=== PATIENT | male | born 2000 | race Caucasian/White ===

== ENCOUNTER 2023-07-18 14:05 | Observation (INO) ==
[2023-07-18] MEDS ORDERED: oxyCODONE HCL IR 5 MG TAB (IMMEDIATE RELEASE) PO STA (14:32)
--- NOTE | 2023-07-18 14:36 | Emergency Department Note ---
ED Provider Note History of Present Illness Chief Complaint: Leg Injury/Pain Time Seen by Provider: 07/18/23 14:12 Source: patient Mode of arrival: EMS Limitations: no limitations This patient is a 23-year-old male who presents to the emergency department for evaluation of a left leg injury. Patient states that he was walking down steps and tripped, causing all of his weight to land on his left leg. He reports that he had an immediate onset of severe pain and heard a crack. He has a history of a tibial plateau fracture and does report that he has hardware. 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 His email production specialist is in [place]. He states that he contacted them and already treated himself with 3000 units of factor. Home Medications Medication Instructions Recorded Confirmed Type emicizumab-kxwh 105 mg/0.7 mL 105 mg subcut .Q 2 WEEKS 07/18/23 07/18/23 History subcutaneous solution (Hemlibra) fluoxetine 20 mg capsule 20 mg PO DAILY 07/18/23 07/18/23 History Allergies Allergy/AdvReac Type Severity Reaction Status Date / Time blood thinner AdvReac Severe Patient is Uncoded 07/18/23 16:35 Hemophiliac Past Med/Surg History Medical History (Updated 07/18/23 @ 22:07 by Julianne Culp PA-C) Hemophilia A Surgical History No pertinent past surgical history Social History Smoking Status: Never smoker Preferred Language: Citizen Of [place] Feels Safe at Home: Yes and No Physical Exam Vital Signs Vital Signs - 24 hr 07/18/23 14:13 07/18/23 18:30 Temperature 36.6 C Temperature Source Oral Pulse Rate 90 Pulse Rate [Apical] 84 Respiratory Rate 18 20 Respiratory Effort / Characteristics Non-Labored Spontaneous Non-Labored Spontaneous Respiratory Depth Normal Normal Respiratory Pattern Regular Blood Pressure 121/76 Blood Pressure [Left Arm] 120/61 Blood Pressure Mean 91 Blood Pressure Mean [Left Arm] 80 Pulse Oximetry 100 97 Oxygen Delivery Method Room Air Sepsis Recent Fever Within 48 Hours No Sepsis New/Unexplained Change in Mental Status No Sepsis Action Taken by Nursing No Action Required VITALS: Vitals are noted on the nurse's note and reviewed by myself. GENERAL: This is a 23-year-old male, in no acute distress, well-developed well- nourished. SKIN: There are no open wounds. MUSCULOSKELETAL: There is tenderness to palpation over the left proximal tibia/fibula. No tenderness of the left upper leg, ankle or foot. Full range of motion of the toes. Dorsalis pedis pulse 2+. NEURO: Patient was alert and oriented to person place and time. Distal sensation intact. Course Administered Medications Discontinued Medications Oxycodone HCl (Oxycodone Hcl Ir 5 Mg Tab (Immediate Release)) 5 mg PO NOW STA Stop: 07/18/23 14:33 Last Admin: 07/18/23 14:42 Dose: 5 mg Documented By: EITAN Medical Decision Making Differential Diagnosis Differential diagnosis includes ligamentous injury, fracture, hemarthrosis, among others. Home Medications was personally reviewed by me Laboratory Data Attestation: I reviewed the patient's lab results. 07/18/23 17:48 07/18/23 17:48 Lab Results 07/18/23 Range/Units 17:48 WBC 10.35 (4.8-10.8) K/ul RBC 4.89 (4.70-6.10) M/uL Hgb 12.5 L (14.0-18.0) g/dl Hct 38.3 L (42.0-52.0) % MCV 78.3 L (80.0-100.0) fL MCH 25.6 (25.0-34.0) pg MCHC 32.6 (32.0-36.0) g/dL RDW Std Deviation 42.7 (36.4-46.3) fL RDW Coeff of [place] 15.1 H (11.5-14.5) % Plt Count 246 (130-400) K/uL MPV 10.5 (9.4-12.4) fL Immature Gran % (Auto) 0.3 % Neut % (Auto) 84.3 % Lymph % (Auto) 7.0 % [place] % (Auto) 8.2 % Eos % (Auto) 0.0 % Baso % (Auto) 0.2 % Neut # (Auto) 8.73 H (1.40-6.50) K/uL Lymph # (Auto) 0.72 L (1.20-3.40) K/uL [place] # (Auto) 0.85 H (0.11-0.59) K/uL Eos # (Auto) 0.00 (0.00-0.50) K/uL Baso # (Auto) 0.02 (0.00-0.20) K/uL Immature Gran # (Auto) 0.03 (0.01-0.20) K/uL Sodium 138 (136-145) mmol/L Potassium 3.6 (3.5-5.1) mmol/L Chloride 104 (98-107) mmol/L Carbon Dioxide 25 (21-32) mmol/L Anion Gap 9 (3-11) BUN 12 (6-23) mg/dl Creatinine 0.79 (0.6-1.4) mg/dl Est Cr Clr Drug Dosing Not Reportable Est GFR ( Amer) 148.8 ml/min Est GFR (Non-Af Amer) 128.4 ml/min BUN/Creatinine Ratio 15.2 (10-20) Glucose 110 H (70-99(Fasting)) mg/dl Calcium 9.2 (8.6-10.3) mg/dl Imaging Data Attestation: I personally reviewed and interpreted this imaging study as follows: Radiologist's Impression: Tibia/Fibula X-Ray 07/18/23 14:32 LEFT TIBIA AND FIBULA 2 VIEWS CLINICAL HISTORY: Left leg injury. FINDINGS: AP and lateral portable views of the left tibia and fibula are compared to study dated 04/12/2023. There is disuse osteopenia. No acute fracture is identified. There is post traumatic deformity of the proximal tibia and fibula with buttress plates in place along the proximal tibial cortex. There are also surgical clips adjacent to the chronic proximal fibular fracture. Additional screw tracts are seen in the distal tibial shaft. The knee and ankle joints are grossly maintained. The overlying soft tissues are within normal limits. IMPRESSION: 1. No acute fracture is identified. 2. Posttraumatic deformity and postsurgical change of the proximal tibia and fibula as above. Electronically signed by: Andrea Funez M.D. 07/18/2023 3:01 PM Knee X-Ray 07/18/23 14:39 LEFT KNEE 3 VIEWS CLINICAL HISTORY: Left leg injury. FINDINGS: AP, crosstable lateral, and sunrise views of the left knee are compared to study dated 05/31/2023. There is disuse osteopenia. No acute fracture is identified. There is posttraumatic deformity of the proximal tibia and fibula with buttress plates in place along the proximal tibial cortex. There are also surgical clips adjacent to the chronic/healed proximal fibular shaft fracture. There is persistent depression of the lateral tibial plateau by approximately 5 mm. The joint spaces are grossly maintained. A joint effusion is observed. The overlying soft tissues are within normal limits. IMPRESSION: 1. Joint effusion with no acute fracture identified. 2. Posttraumatic deformity and postsurgical change of the proximal tibia and fibula as above. Electronically signed by: Andrea Funez M.D. 07/18/2023 4:05 PM MDM Narrative This patient is a 23-year-old male with past medical history of hemophilia A who presents to the emergency department for evaluation of a left leg injury. Patient has a history of left leg tibial plateau fracture and compartment syndrome in February of this year. He required fasciotomies and had ORIF performed, all in [place]. His x-rays here showed no fractures, although an effusion of the left knee is noted. Unclear whether this represents a hemarthrosis. Patient's mother had contacted his hemophilia specialist prior to his arrival and they recommended 3000 units of factor VIII which the patient gave himself prior to arrival here. I did reach out to the patient's email production specialist. They recommended checking labs. His hemoglobin is usually between 9 and 10 and today is 12.5. They recommend that the patient receive his Hemlibra tonight as scheduled. They state there is no need to check factor levels because this will be affected by the Hemlibra. They did recommend reaching out to orthopedics. I spoke with orthopedics, Dr. Vicente who recommended placing the patient in a bulky Coker dressing and knee immobilizer. He can follow-up with his established orthopedic surgeon back in [place]. There is no need for further treatment from an orthopedic perspective at this time. I again spoke with the patient's email production specialist with the laboratory updates. They did daily factor at a dosage of 50 units/kg for 3 days. They reported there is no need for arthrocentesis at this time. They do recommend observing the patient for at least 24 hours for him to receive his second dose of factor. [facility] was consulted and agreed to evaluate patient for further care. Impression Effusion of left knee, Hemophilia A Discharge Plan Visit Data Chief Complaint: Leg Injury/Pain ED Provider: [facility] Midlevel Provider: Julianne Culp Discharge Problem: Effusion of left knee, Hemophilia A Discharge Instructions Interventions: ED Discharge Assessment Last Done: 07/18/23 21:19
--- NOTE | 2023-07-18 15:03 | XRay Report ---
LEFT TIBIA AND FIBULA 2 VIEWS CLINICAL HISTORY: Left leg injury. FINDINGS: AP and lateral portable views of the left tibia and fibula are compared to study dated 04/12. There is disuse osteopenia. No acute fracture is identified. There is post traumatic deformity of the proximal tibia and fibula with buttress plates in place along the proximal tibial cortex. The re are also surgical clips adjacent to the chronic proximal fibular fracture. Additional screw tracts are seen in the distal tibial shaft. The knee and ankle joints are grossly maintained. The overlying soft tissues are within normal limits. IMPRESSION: 1. No acute fracture is identified. 2. Posttraumatic deformity and postsurgical change of the proximal tibia and fibula as above. Electronically signed by: Andrea Funez M.D. 07/18/2023 3:01 PM
--- NOTE | 2023-07-18 16:06 | XRay Report ---
LEFT KNEE 3 VIEWS CLINICAL HISTORY: Left leg injury. FINDINGS: AP, crosstable lateral, and sunrise views of the left knee are compared to study dated 05/13. There is disuse osteopenia. No acute fracture is identified. There is posttraumatic deformity of the proximal tibia and fibula with buttress plates in place along the proximal tibial cortex. The re are also surgical clips adjacent to the chronic/healed proximal fibular shaft fracture. There is p ersistent depression of the lateral tibial plateau by approximately 5 mm. The joint spaces are grossl y maintained. A joint effusion is observed. The overlying soft tissues are within normal limits. IMPRESSION: 1. Joint effusion with no acute fracture identified. 2. Posttraumatic deformity and postsurgical change of the proximal tibia and fibula as above. Electronically signed by: Andrea Funez M.D. 07/18/2023 4:05 PM
[2023-07-18 18:10] LABS: Basophils # (auto) 0.02 K/uL (0.00-0.20); Basophils % (auto) 0.2 %; Hematocrit (blood only) 38.3 % (42.0-52.0); Hemoglobin 12.5 g/dl (14.0-18.0); Immature Granulocytes # (auto) 0.03 K/uL (0.01-0.20); Immature Granulocytes % (auto) 0.3 %; Lymphocytes # (auto) 0.72 K/uL (1.20-3.40); Mean Corpuscular Hemoglobin 25.6 pg (25.0-34.0); Mean Corpuscular Hgb Conc 32.6 g/dL (32.0-36.0); Mean Corpuscular Volume 78.3 fL (80.0-100.0); Mean Platelet Volume 10.5 fL (9.4-12.4); Monocytes # (auto) 0.85 K/uL (0.11-0.59); Monocytes % (auto) 8.2 %; Neutrophils # (auto) 8.73 K/uL (1.40-6.50); Neutrophils % (auto) 84.3 %; Platelet Count 246 K/uL (130-400); RDW Coefficient of Variation 15.1 % (11.5-14.5); RDW Standard Deviation 42.7 fL (36.4-46.3); Red Blood Count 4.89 M/uL (4.70-6.10); White Blood Count 10.35 K/ul (4.8-10.8)
[2023-07-18 18:25] LABS: Anion Gap 9 (3-11); BUN Creatinine Ratio 15.2 (10-20); Blood Urea Nitrogen 12 mg/dl (6-23); Calcium 9.2 mg/dl (8.6-10.3); Carbon Dioxide 25 mmol/L (21-32); Chloride 104 mmol/L (98-107); Est GFR (African American) 148.8 ml/min; Est GFR (Non-African American) 128.4 ml/min; Glucose 110 mg/dl (70-99(Fasting)); Potassium 3.6 mmol/L (3.5-5.1); Sodium 138 mmol/L (136-145)
[2023-07-18] MEDS ORDERED: HEMLIBRA SQ ONE ×2 (19:18→22:15)
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
[2023-07-19] MEDS: ACETAMINOPHEN 325 MG TAB PO PRN ×2 (00:47→08:16)
--- OUTSIDE RECORDS SUMMARY | 2023-07-19 02:38 | External Medical Summary | Continuity of Care Document ---
Author Name Unknown Organization [facility] [address] [facility] [address] Address [facility] [place], [place] [id number] Encounter [facility] [id number] Date(s): 05/31/23 - 05/31/23 [facility] [address] [facility] [address] [facility] [address] [place] [address], [address] [address] Encounter Diagnosis S/P orthopedic surgery, follow-up exam(Discharge Diagnosis) - 05/31/23 PCL sprain(Discharge Diagnosis) - 05/31/23 Discharge Disposition: Home or Self Care Attending Physician: MD Jules, Godwin A Allergies, Adverse Reactions, Alerts Substance Reaction Severity Status Allergy Not found in Search 1 BLOOD THINNERS HAS HEMOP DE Active 1BLOOD THINNERS HAS HEMOPHELIA Medications Adynovate intravenous injection Start: 12/08/22 15:22:00 EDT, 300 units Start Date: 12/08/22 Status: Ordered aminocaproic acid 250 mg/mL intravenous solution Start: 11/30/22 7:50:00 EDT, Unknown Start Date: 11/30/22 Status: Ordered cetirizine 10 mg oral tablet Start: 11/30/22 7:51:00 EDT, 10 Unknown, Unknown Start Date: 11/30/22 Status: Ordered fluticasone 50 mcg/inh nasal spray Start: 11/30/22 7:51:00 EDT, 2 Unknown, Unknown Start Date: 11/30/22 Status: Ordered Hemlibra 105 mg/0.7 mL subcutaneous solution Start: 04/12/23 8:27:00 EDT Start Date: 04/12/23 Status: Ordered montelukast 10 mg oral tablet Start: 11/30/22 7:51:00 EDT, 10 Unknown, Unknown Start Date: 11/30/22 Status: Ordered Mental Status 05/31/23 Barriers to Learning one year None evide nt Mandatory Health Literacy Documentation Yes Health Literacy Communication Barriers N ever Primary Language [place] Problem List Condition Confirmation Course Effective Dates Status Health St atus Informant Hemophilia Confirmed Active Left wrist injury Confirmed Active PCL sprain Confirmed Active S/P orthopedic surgery, follow-up exam Confirmed Active Diagnosis Diagnosis Type Effective Dates Health Status Clinical Service Informant S/P orthopedic surgery, follow-up exam Discharge Diagnosis 05/31/23 PCL sprain Discharge Diagnosis 05/31/23 Procedures Procedure Date Related Diagnosis Body Site Status Orthopedics surgery service 1 2022 Completed Tonsillectomy Completed 1left leg Social History Social History Type Response Smoking Status Never smoked cigaret eunice Sex Male Ortho Outpt Note * MD Jules, Godwin A: MODIFY MD Julse, Godwin A: MODIFY, MODIFY, PERFORM Natalie Cody: PERFORM Event Display: Ortho Outpt Note Authored Date: [id number] Name:PARUL VILLARREAL Patient Number:[id number] :2000 Date of Service:05/31/2023 CHIEF COMPLAINT: F/u s/p fasciotomyand application of left knee spanning external fixator on03/07/2023 and removal of Ex-Fixand ORIF of the lefttibial plateau fracture on03/09/2023 HPI: [id number] I am following for the above- noted procedure. He has regained somefeeling in his foot and has improved ROM.Patient is currently ambulating in a wheelchair. He has not been in formal physical therapy. Today he rates his pain as a 0/10. ROS: Refer to the HPI. PHYSICAL EXAM: Focusing on the patient'sleftlower extremity: Brisk cap refill < 2 seconds 1+ DP pulse Sensation to light touch is intact over the lesser toes 1st web space [id number]% Medial to the great toe [id number]% Top of the foot estimates [id number]% Motor to the gastroc soleus, tibialis anterior, and EHL is 5/5. Able to perform straight leg raise. -Rosita's Ligamentous examination exhibits:_ [id number] anterior translation andfirm endpoint Posterior [id number] posterior translation with firm endpoint Varus stress at 0 and 30stableno opening Valgus stress at 0 and 30stableno opening - NoEffusion Range of motion 0 to 135 Incisions well healed Slight quad atrophy Symmetric dial testing at 90and 30 RADIOGRAPHY: AP and lateral of the left knee obtained today and personally interpreted by me show evidence of previous Ex-Fix conversion to ORIF of the left tibial plateau with 2 plates and multiple screws. Alignment is well maintained, withcomplete consolidation. The proximal fibular shaft fracturehas maintained alignment with evidence of consolidation and a small butterfly fragment and noted metallic clips. There is increased consolidation and callus formationproximal fibular shaft fracture. IMPRESSION: 23-year-old male s/p fasciotomyand application of left knee spanning external fixatoron03/07/2023 and removal of Ex-Fixand ORIF of the lefttibial plateau fracture on 03/09/2023, performed at [facility], PCL sprain,doing fairly well GOAL: Return to normal activity PLAN: We will obtain a PCL functional brace during activity. Physical therapy was ordered. He is 25-50% partial weight bearing and may gradually progress to WBAT. RICE. Short course of anti-inflammatories, alternating with Tylenol as needed for pain. Follow-up in September of 2023 with X-rays. He will follow up with his physician at [facility] during . The patient understood all my instructions and explanation; all their questions were satisfactorilyaddressed. ATTESTATION: I, Natalie Cody, have scribed for, and in the presence of, Godwin Vicente, on this date,05/31/2023 10:34:22. I, Dr. Vicente, saw and examined the patient with Natalie Cody acting as my scribe. I reviewed the note and agree with the documented findings and the plan of care I developed. Electronic Signature on File Electronically Reviewed/Signed by: Natalie Cody Author Signature Dt/Tm:05/31/2023 10:45 AM Electronically Reviewed/Signed by: Natalie Cody Cosigner Signature Dt/Tm: 05/31/2023 10:48 AM Electronically Reviewed/Signed by: Godwin Vicente MD Cosigner Signature Dt/Tm: 05/31/2023 11:26 AM [facility] Director Digital Strategy Department of Orthopaedics and [facility] [address], [place] [address] OA Patient Care team information Care Team Personnel Name: Omar Shannon Position: HIS Supervisor_P Member Role: HIS Lifetime
--- OUTSIDE RECORDS SUMMARY | 2023-07-19 02:39 | External Medical Summary | Continuity of Care Document ---
Author Name Unknown Organization [facility] [address] [id number] Address [address], [place] [id number] Encounter [facility] [id number] Date(s): 04/12/23 - 04/12/23 [facility] [address] [address], [address] [address] Encounter Diagnosis Left tibial fracture(Discharge Diagnosis) - 04/12/23 S/P orthopedic surgery, follow-up exam(Discharge Diagnosis) - 04/12/23 Discharge Disposition: Home or Self Care Attending Physician: MD Jules, Godwin A Allergies, Adverse Reactions, Alerts Substance Reaction Severity Status Allergy Not found in Search 1 BLOOD THINNERS HAS HEMOP ED Active 1BLOOD THINNERS HAS HEMOPHELIA Assessment and Plan Extracted from: Title:Left tib-fib x-ray report Author:MD Jules , Godwin A Date:04/12/23 OUTPATIENT NOTE Name: PARUL VILLARREAL Patient Number:[id number] : 2000 Date of Service: 04/12/2023 ORTHOPAEDIC RADIOLOGICAL REPORT RADIOGRAPHIC EXAM COMPLETED AT: [facility] EXAM: XR -LEFT TIB-FIB SERIES: AP and LATERAL VIEWS. COMPARISION: None. CLINCAL DATA: Status post ORIF left will plateau fracture. FINDINGS: Evidence of his recent surgeries with hardware with plates and screws in good position for the tibial plateau fracture as well as evidence of his prior Ex-Fix sites distal to the plates and screws. There are some metallic clips near the distal end of the fibula fracture. Short oblique fibula fracture at the level of the distal end of the plate, with evidence of callus formation, minimally displaced. Joint space well maintained. CONCLUSION: Evidence of recent Ex-Fix followed by ORIF tibial plateau, fracture well aligned, hardware in good place. Proximal fibula fracture, short oblique, with evidence of healing. _ Extracted from: Title:Godwin Vicente Author:DO Middleton Ravin Date: 04/12/23 1.Left tibial fracture Abscess impression: 4 weeks status postEx-Fix, 4 compartment fasciotomyfollowed byORIF tibial plateauandwound closure, performed at [facility],doing fairly well. Grade 1-2 PCL sprain &LCLsprain. X-rays reviewed today with patient ortho note from operating surgeon reviewed pt will work on active assisted ROM exercises specifically, knee flexion and extension to strengthen quadriceps muscle Continue with NWB motorized scooter,andhinged knee brace. patient not currently setting up PT will set up to have pt records transferred f/u in 6-8 weeks with repeat XR, can consider PT at that time Medications Adynovate intravenous injection Start: 12/08/22 15:22:00 [...] Unknown, Unknown Start Date: 11/30/22 Status: Ordered Problem List Condition Confirmation Course Effective Dates Status Health St atus Informant Hemophilia Confirmed Active Left wrist injury Confirmed Active S/P orthopedic surgery, follow-up exam Confirmed Active Diagnosis Diagnosis Type Effective Dates Health Status Clinical Service Informant Left tibial fracture Discharge Diagnosis 04/12/23 S/P orthopedic surgery, follow-up exam Discharge Diagnosis 04/12/23 Procedures Procedure Date Related Diagnosis Body Site Status Orthopedics surgery service 1 2022 Completed Tonsillectomy Completed 1left leg Social History Social History Type Response Smoking Status Never smoked cigaret eunice Sex Male Outpatient Note * MD Jules, Godwin A: PERFORM Event Display: .Outpt Note Authored Date: [id number] OUTPATIENT NOTE Name: PARUL VILLARREAL Patient Number:[id number] : 2000 Date of Service: 04/12/2023 ORTHOPAEDIC RADIOLOGICAL REPORT RADIOGRAPHIC EXAM COMPLETED AT: [facility] EXAM: XR -LEFT TIB-FIB SERIES: AP and LATERAL VIEWS. COMPARISION: None. CLINCAL DATA: Status post ORIF left will plateau fracture. FINDINGS: Evidence of his recent surgeries with hardware with plates and screws in good position for the tibial plateau fracture as well as evidence of his prior Ex-Fix sites distal to the plates andscrews. There are some metallic clips near the distal end of the fibula fracture. Short oblique fibula fracture at the level of the distal end of the plate, with evidence of callus formation, minimally displaced. Joint space well maintained. CONCLUSION: Evidence of recent Ex-Fix followed by ORIF tibial plateau, fracture well aligned, hardware in good place. Proximal fibula fracture, short oblique, with evidence of healing. _ Electronic Signature on File Electronically Reviewed/Signed by: Godwin Vicente MD Author Signature Dt/Tm:04/12/2023 09:37 AM [facility] [employer] Department of Orthopaedics and Rehabilitation [facility] [address], [place] [address] DAB * MD Jules, Godwin A: MODIFY MD Jules, Godwin A: MODIFY, MODIFY, MODIFY, MODIFY, MODIFY Event Display: Ortho Outpt Note Authored Date: [id number] Subjective This is [id number] male who is coming to us from follow-upafter seeing his orthopedic surgeonon March 22, 2023. He is status postfasciotomyand application of knee spanning external fixator onJuly and removal of Ex- Fixand ORIF of the lefttibial plateau fracture on03/09. He is 1 month postop. Not currently on DVT prophylaxis, hx of hemophilia Has to only takeTylenol PRN pain is much better post-operatively no recent fevers or chills non toxic appearing male Objective Physical Exam GENERAL APPEARANCE: The patient is alert, oriented and in no acute distress. VITALS: As above. SKIN: Warm and dry without any rash MSK: LEFT FINA Incisions healing without drainage or infection Neurovascular intactat the leftlower extremity Left lower extremityscarshealingwithout any signs of active drainage 4 out of 5 strength withkneeflexionextension, plantar and dorsiflexion EHL and Tib Ant +4/5 Gastroc and Soleus 4/5 2+ DP brisk cap refill mid tibia to MTP 10% numbness deep peroneal 1st webspace 80-90% sensation intact superficial peroneal nerve sensationintact Left ankle swellingalong the medial aspect anddorsal aspect of foot occasional numbness of anterior aspect of the tibia no effusion at knee, TTP at medial patellar facet, TTP over medial& lateraljoint line, ACL,PCL opening with Varus stress at 30 degrees but not at 0 degrees posterior drawer 2mm posterior translation, good end point dial testing positive at 90 and 30 degrees Diagnostic Results XR AP and LATERAL TIB FIB: evidence of recent surgery with hardware in place, fx of the tibial plateau well aligned fibular shaft fx is also fairly well aligned with evidence of callous formation and some metallic clips evidence of prior external fixator sites Assessment/Plan 1.Left tibial fracture Abscess impression: 4 weeks status postEx-Fix, 4 compartment fasciotomyfollowed byORIF tibialplateauandwound closure, performed at [facility],doing fairly well. Grade 1-2 PCL sprain &LCLsprain. X-rays reviewed today with patient ortho note from operating surgeon reviewed pt will work on active assisted ROM exercises specifically, knee flexion and extension to strengthen quadriceps muscle Continue with NWB motorized scooter,andhinged knee brace. patient not currently setting up PT will set up to have pt records transferred f/u in 6-8 weeks with repeat XR, can consider PT at that time Attestation I, Dr. Vicente, saw and examined the patient and discussed the management with the fellow. I reviewedthe fellows note and agree with the documented findings and the plan of care we developed. Electronic Signature on File Electronically Reviewed/Signed by: Hugh Middleton DO Author Signature Dt/Tm:04/12/2023 08:57 AM Resident Division of Sports Medicine Electronically Reviewed/Signed by: Hugh Middleton DO Cosigner Signature Dt/Tm: 04/12/2023 09:01 AM Resident Division of Sports Medicine Electronically Reviewed/Signed by: Godwin Vicente MD Cosigner Signature Dt/Tm: 04/12/2023 09:34 AM [facility] [employer] Department of Orthopaedics and Rehabilitation [facility] [address], [place] [address] RP Patient Care team information Care Team Personnel Name: Omar Shannon Position: HIS Supervisor_P Member Role: HIS Lifetime
[2023-07-19 08:11] LABS: Hematocrit (blood only) 38.1 % (42.0-52.0); Hemoglobin 12.5 g/dl (14.0-18.0); Mean Corpuscular Hemoglobin 26.1 pg (25.0-34.0); Mean Corpuscular Hgb Conc 32.8 g/dL (32.0-36.0); Mean Corpuscular Volume 79.5 fL (80.0-100.0); Mean Platelet Volume 10.9 fL (9.4-12.4); Platelet Count 248 K/uL (130-400); RDW Coefficient of Variation 15.4 % (11.5-14.5); RDW Standard Deviation 43.8 fL (36.4-46.3); Red Blood Count 4.79 M/uL (4.70-6.10); White Blood Count 8.47 K/ul (4.8-10.8)
[2023-07-19] MEDS ORDERED: FLUoxetine HCL 20 MG CAP PO SCH (09:00)
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
[2023-07-19] MEDS ORDERED: [UNRECOGNIZED DRUG - OTHER] SCH (14:00)
[2023-07-19] MEDS ORDERED: ANTIHEMOPHILIC FACTOR SCH (14:00)
--- NOTE | 2023-07-19 17:02 | Billing Data ---
Date of Service July 19, 2023 Coding Level of Care Code 50511 IN/OBS DISCH 30 MIN/LESS
--- NOTE | 2023-07-20 05:42 | Billing Data ---
Date of Service July 20, 2023 Coding Level of Care Code 96826 INT INP/OBS CARE
== END 2023-07-19 15:16 | disposition home or self-care (01) ==
LOC: SUATTDRO → 3N 14:05 → ED 14:05 → SUATTDRO 19:48 → 3N 21:19